=== PATIENT | female | born 1990 | race African-American/Black ===

== ENCOUNTER 2018-10-01 08:04 | Emergency (ER) | payer OTHER, SELFPAY ==
--- NOTE | 2018-10-01 08:13 | ED.PREGNANCY ---
HPI - General Chief complaint: Vaginal Bleeding Stated complaint: ,bleeding Time Seen by Provider: 10/01/18 08:05 Source: patient and family Mode of arrival: ambulatory Limitations: no limitations History of Present Illness HPI Narrative: 28-year-old female nonsmoker at 11 weeks presents with a small amount of pinkish spotting this morning in the absence of any pain, fever or chills. She has not dizzy nor weak or lightheaded and denies urinary complaints such as dysuria, frequency or urgency. She had a miscarriage at 11 weeks with a prior and her living child was delivered by emergency at 27 weeks. Patient has been referred to maternal medicine at [facility] in [place] Complaint: vaginal bleeding Onset (ago): hour(s) Location: pelvis Associated symptoms: vaginal bleeding Vaginal discharge: none Vaginal bleeding: light Patient : Yes OB History - Current : no complications OB History - Previous Pregnancies: miscarriage care: followed by OB and previous ultrasound confirms IUP Review of Systems Constitutional Denies chills, Denies fever(s), Denies lethargy and Denies weakness Eyes Denies change in vision, Denies eye discharge, Denies irritation and Denies loss of vision ENT Ears, Nose, Mouth, and Throat: Denies change in voice, Denies neck pain and Denies sore throat Cardiovascular Denies chest pain, Denies irregular heart rhythm, Denies lightheadedness, Denies palpitations, Denies dyspnea, Denies dyspnea on exertion and Denies orthopnea Respiratory Denies cough, Denies dyspnea, Denies dyspnea on exertion and Denies wheezing Gastrointestinal Gastrointestinal: Denies abdominal pain, Denies change in bowel habits, Denies diarrhea, Denies nausea and Denies vomiting Genitourinary Denies hematuria, Denies flank pain, Denies urinary incontinence and Denies urinary urgency Musculoskeletal Denies neck pain Integumentary/Breasts Denies pruritus, Denies erythema, Denies rash and Denies wounds Neurologic Denies confusion, Denies loss of vision and Denies weakness Psychiatric Denies anxiety, Denies confusion, Denies depression, Denies homicidal ideation and Denies suicidal ideation Endocrine Denies palpitations Hematologic/Lymphatic Denies easy bruising Allergic/Immunologic Denies wheezing PMFSH - Past Medical History Patient : Yes Exam Narrative Exam Narrative: GENERAL: Pleasant 28-year-old female appears stated age, in no obvious or significant distress HEAD: Atraumatic. Normocephalic. No temporal or scalp tenderness. EYES: Pupils equal round and reactive. Extraocular motions intact. No scleral icterus. No injection or drainage. ENT: Nose without bleeding, purulent drainage or septal hematoma. Throat without erythema, tonsillar hypertrophy or exudate. Uvula midline. Airway patent. NECK: Trachea midline. No JVD or lymphadenopathy. Supple, nontender, no meningeal signs. CARDIOVASCULAR: Regular rate and rhythm without murmurs, gallops, or rubs. RESPIRATORY: Clear to auscultation. Breath sounds equal bilaterally. No wheezes, rales, or rhonchi. GASTROINTESTINAL: Abdomen soft, non-tender, nondistended. No hepato-splenomegaly, or palpable masses. No guarding. EXTREMITIES: No clubbing, cyanosis, or edema. No joint tenderness, effusion, or edema noted. BACK: Nontender without deformity or crepitance. No flank tenderness. NEURO: AOx3. SKIN: No rash or erythema. Initial Vital Signs Initial Vital Signs: Vital Signs Temperature 97.4 F L 10/01/18 08:21 Pulse Rate 68 10/01/18 08:21 Respiratory Rate 12 10/01/18 08:21 Blood Pressure 113/68 10/01/18 08:21 Pulse Oximetry 100 10/01/18 08:21 Course Orders Ordered: ED Orders 10/01/18 08:39 US OB <= 14 weeks fetus Stat 10/01/18 08:48 Basic Metabolic Panel Stat Complete Blood Count AUTO DIFF Stat HCG Quantitative Stat Vital Signs - 8 hr 10/01/18 08:21 Temperature 97.4 F L Pulse Rate 68 Respiratory Rate 12 Blood Pressure 113/68 Pulse Oximetry 100 MDM - OB/Uterine Contractions Lab Data Result diagrams: 10/01/18 08:48 10/01/18 08:48 Lab Results 10/01/18 10/01/18 Range/Units 08:48 08:48 WBC 4.9 (4.5-11.0) X10^3/uL RBC 4.47 (4.0-5.2) X10^6/uL Hgb 10.8 L (12.0-16.0) g/dL Hct 33.1 L (36-46) % MCV 74.1 L (80-100) fL MCH 24.1 L (26-34) PG MCHC 32.5 (30-36) % RDW 18.6 H (11.6-14.8) % Plt Count 257 (150-400) X10^3/uL Neut % (Auto) 69.5 (50-75) % Lymph % (Auto) 18.9 L (25-40) % [place] % (Auto) 9.5 (3-14) % Eos % (Auto) 1.0 L (2-4) % Baso % (Auto) 1.1 (0-2) % Neut # (Auto) 3400 (1958-9312) /uL Lymph # (Auto) 900 L (4003-6744) /uL [place] # (Auto) 500 (0-900) /uL Eos # (Auto) 100 (0-450) /uL Baso # (Auto) 100 (0-100) /uL Sodium 136 L (137-145) mmol/L Potassium 4.0 (3.4-5.1) mmol/L Chloride 103 (98-107) mmol/L Carbon Dioxide 26 (22-32) mmol/L BUN 11 (7-17) mg/dL Creatinine 0.70 (0.52-1.04) mg/dL Estimated GFR > 60.0 (>60) mL/min BUN/Creatinine Ratio 15.7 (6-22) Glucose 79 (70-100) mg/dL Calcium 9.0 (8.4-10.2) mg/dL HCG, Quant 74452 mIU/mL Imaging Data US - abdomen: Radiologist's impression: Chart Viewer Diagnostics DATE TYPE STATUS AUTHOR Hx 10/01/18 08:39 Salomon Cheung Dale Hartmann 28, F0 1990 REG ER, ED.LOC - Main ED: R06 89.811kg Vaginal Bleeding Search Chart No Data to Display No Data to Display No Data to Display No Data to Display Today 08:21 Dale Hartmann 28 F [address] [address] Ultrasound Report Signed Patient: Dale HartmannMR#: [id number] : 1990Acct:[id number] Age/Sex: 28 / FDate of Service: 10/01/18 Loc: ED Accession Number: [id number] Procedure: US OB <= 14 weeks fetus Ordering Provider: Luis Antonio Cardoza D.O. PROCEDURE: US OB <= 14 WEEKS FETUS INDICATIONS: SPOTTING OUTSIDE/PRIOR DATING DATA: Last menstrual period (LMP): 07/08/18. LMP-based estimated date of delivery (NAV): 04/14/19. First dating scan (date and location): This study, 10/01/18. Estimated date of delivery (NAV) from first dating scan: 04/20/19. TECHNIQUE: Real-time scanning was performed of the fetus and maternal pelvic organs, with image documentation. COMPARISON: None. FINDINGS: Embryo: Single living intrauterine gestation with heart rate 150 beats per minute and crown-rump length 4.4 cm which correlates with the gestational age estimate of 11 weeks 2 days, plus or -5 days. Measurement variability in dating: +/- 4 weeks by LMP, +/- 7 days by mean sac diameter (use before 6 weeks gestation if crown-rump length not able to be measured), +/- 5 days by crown-rump length (up to 8 weeks 6 days gestation), +/- 7 days by crown-rump length (up to 13 weeks 6 days gestation). Maternal organs: Ovaries not well seen bilaterally due to overlying bowel gas. Limited images through the kidneys demonstrate no hydronephrosis. IMPRESSION: Single living intrauterine gestation, with no evidence of subchorionic hemorrhage. Presence or absence of previa is difficult to establish at this early phase of gestation but there is a suspicion of a marginal previa by current appearance. Followup assessment for anatomic survey and accurate assessment for presence or absence of low lying placenta/marginal previa is recommended at approximately 20 weeks gestation. The delivery date is projected to be centered on 04/20/19, plus or -5 days. Dictated by: Salomon Cheung M.D. on 10/01/2018 at 9:28 Approved by: Salomon Cheung M.D. on 10/01/2018 at 9:36 Discharge Plan Departure Patient Disposition: Home Clinical Impression: Vaginal bleeding Discharge Date/Time: 10/01/18 10:04 Interventions: ED Discharge Assessment Last Done: 10/01/18 10:03 Instructions: DI for Vaginal Bleeding During Activity Restrictions/Additional Instructions: *You have been diagnosed with [acute vaginal spotting, ultrasound said there are is a small possibility of a minor placenta previa but is unclear and they recommend follow-up with Ob] *What to do: * continue to take medications as directed *Follow up with your OB provider in 2-3 days, call for an appointment. Let them know you were seen in the Emergency Department and that we ask that you be seen in follow up *Return to ER if you should have any new, worsening or concerning symptoms, such as [increasing pain, bleeding through 1 pad per hour, dizziness, lightheadedness or other bothersome symptoms]
[2018-10-01 08:21] VITALS: BP 113/68; PULSE 68; RESP 12; TEMP 36.3; O2SAT 100
--- NOTE | 2018-10-01 08:39 | DI.US.S_ITS ---
PROCEDURE: US OB <= 14 WEEKS FETUS INDICATIONS: SPOTTING OUTSIDE/PRIOR DATING DATA: Last menstrual period (LMP): 07/08/18. LMP-based estimated date of delivery (NAV): 04/14/19. First dating scan (date and location): This study, 10/01/18. Estimated date of delivery (NAV) from first dating scan: 04/20/19. TECHNIQUE: Real-time scanning was performed of the fetus and maternal pelvic organs, with image documentation. COMPARISON: None. FINDINGS: Embryo: Single living intrauterine gestation with heart rate 150 beats per minute and crown-rump length 4.4 cm which correlates with the gestational age estimate of 11 weeks 2 days, plus or -5 days. Measurement variability in dating: +/- 4 weeks by LMP, +/- 7 days by mean sac diameter (use before 6 weeks gestation if crown-rump length not able to be measured), +/- 5 days by crown-rump length (up to 8 weeks 6 days gestation), +/- 7 days by crown-rump length (up to 13 weeks 6 days gestation). Maternal organs: Ovaries not well seen bilaterally due to overlying bowel gas. Limited images through the kidneys demonstrate no hydronephrosis. IMPRESSION: Single living intrauterine gestation, with no evidence of subchorionic hemorrhage. Presence or absence of previa is difficult to establish at this early phase of gestation but there is a suspicion of a marginal previa by current appearance. Followup assessment for anatomic survey and accurate assessment for presence or absence of low lying placenta/marginal previa is recommended at approximately 20 weeks gestation. The delivery date is projected to be centered on 04/20/19, plus or -5 days. Dictated by: Salomon Cheung M.D. on 10/01/2018 at 9:28 Approved by: Salomon Cheung M.D. on 10/01/2018 at 9:36
[2018-10-01 08:58] LABS: Add Manual Diff / Slide Review NO; Basophils Absolute Auto 100 /uL (0-100); Basophils Percent Auto 1.1 % (0-2); Eosinophils Absolute Auto 100 /uL (0-450); Hematocrit 33.1 % (36-46); Hemoglobin 10.8 g/dL (12.0-16.0); Lymphocytes Absolute Auto 900 /uL (1100-4500); Lymphocytes Percent Auto 18.9 % (25-40); Mean Corpuscular HGB Conc 32.5 % (30-36); Mean Corpuscular Hemoglobin 24.1 PG (26-34); Mean Corpuscular Volume 74.1 fL (80-100); Monocytes Absolute Auto 500 /uL (0-900); Monocytes Percent Auto 9.5 % (3-14); Neutrophils Absolute Auto 3400 /uL (1500-7000); Neutrophils Percent Auto 69.5 % (50-75); Platelet Count 257 X10^3/uL (150-400); Red Blood Cell Count 4.47 X10^6/uL (4.0-5.2); Red Cell Distribution Width 18.6 % (11.6-14.8); White Blood Cell Count 4.9 X10^3/uL (4.5-11.0)
[2018-10-01 09:14] LABS: BUN Creatinine Ratio 15.7 (6-22); Blood Urea Nitrogen 11 mg/dL (7-17); Carbon Dioxide 26 mmol/L (22-32); Chloride 103 mmol/L (98-107); Estimated Glomerular Filt Rate > 60.0 mL/min (>60); Glucose 79 mg/dL (70-100); HEMOLYSIS < 15 (0-50); Sodium 136 mmol/L (137-145)
--- NOTE | 2018-10-01 09:52 | ED_ITS ---
HPI - General Chief complaint: Vaginal Bleeding Stated complaint: ,bleeding Time Seen by Provider: 10/01/18 08:05 Source: patient and family Mode of arrival: ambulatory Limitations: no limitations History of Present Illness HPI Narrative: 28-year-old female nonsmoker at 11 weeks presents with a small amount of pinkish spotting this morning in the absence of any pain, fever or chills. She has not dizzy nor weak or lightheaded and denies urinary complaints such as dysuria, frequency or urgency. She had a miscarriage at 11 weeks with a prior and her living child was delivered by emergency C- section at 27 weeks. Patient has been referred to maternal medicine at [facility] in [place] Complaint: vaginal bleeding Onset (ago): hour(s) Location: pelvis Associated symptoms: vaginal bleeding Vaginal discharge: none Vaginal bleeding: light Patient : Yes OB History - Current : no complications OB History - Previous Pregnancies: miscarriage care: followed by OB and previous ultrasound confirms IUP Review of Systems Constitutional Denies chills, Denies fever(s), Denies lethargy and Denies weakness Eyes Denies change in vision, Denies eye discharge, Denies irritation and Denies loss of vision ENT Ears, Nose, Mouth, and Throat: Denies change in voice, Denies neck pain and Denies sore throat Cardiovascular Denies chest pain, Denies irregular heart rhythm, Denies lightheadedness, Denies palpitations, Denies dyspnea, Denies dyspnea on exertion and Denies orthopnea Respiratory Denies cough, Denies dyspnea, Denies dyspnea on exertion and Denies wheezing Gastrointestinal Gastrointestinal: Denies abdominal pain, Denies change in bowel habits, Denies diarrhea, Denies nausea and Denies vomiting Genitourinary Denies hematuria, Denies flank pain, Denies urinary incontinence and Denies urinary urgency Musculoskeletal Denies neck pain Integumentary/Breasts Denies pruritus, Denies erythema, Denies rash and Denies wounds Neurologic Denies confusion, Denies loss of vision and Denies weakness Psychiatric Denies anxiety, Denies confusion, Denies depression, Denies homicidal ideation and Denies suicidal ideation Endocrine Denies palpitations Hematologic/Lymphatic Denies easy bruising Allergic/Immunologic Denies wheezing PMFSH - Past Medical History Patient : Yes Exam Narrative Exam Narrative: GENERAL: Pleasant 28-year-old female appears stated age, in no obvious or significant distress HEAD: Atraumatic. Normocephalic. No temporal or scalp tenderness. EYES: Pupils equal round and reactive. Extraocular motions intact. No scleral icterus. No injection or drainage. ENT: Nose without bleeding, purulent drainage or septal hematoma. Throat without erythema, tonsillar hypertrophy or exudate. Uvula midline. Airway patent. NECK: Trachea midline. No JVD or lymphadenopathy. Supple, nontender, no meningeal signs. CARDIOVASCULAR: Regular rate and rhythm without murmurs, gallops, or rubs. RESPIRATORY: Clear to auscultation. Breath sounds equal bilaterally. No wheezes, rales, or rhonchi. GASTROINTESTINAL: Abdomen soft, non-tender, nondistended. No hepato- splenomegaly, or palpable masses. No guarding. EXTREMITIES: No clubbing, cyanosis, or edema. No joint tenderness, effusion, or edema noted. BACK: Nontender without deformity or crepitance. No flank tenderness. NEURO: AOx3. SKIN: No rash or erythema. Initial Vital Signs Initial Vital Signs: Vital Signs Temperature 97.4 F L 10/01/18 08:21 Pulse Rate 68 10/01/18 08:21 Respiratory Rate 12 10/01/18 08:21 Blood Pressure 113/68 10/01/18 08:21 Pulse Oximetry 100 10/01/18 08:21 Course Orders Ordered: ED Orders 10/01/18 08:39 US OB <= 14 weeks fetus Stat 10/01/18 08:48 Basic Metabolic Panel Stat Complete Blood Count AUTO DIFF Stat HCG Quantitative Stat Vital Signs - 8 hr 10/01/18 08:21 Temperature 97.4 F L Pulse Rate 68 Respiratory Rate 12 Blood Pressure 113/68 Pulse Oximetry 100 MDM - OB/Uterine Contractions Lab Data Result diagrams: 10/01/18 08:48 10/01/18 08:48 Lab Results 10/01/18 10/01/18 Range/Units 08:48 08:48 WBC 4.9 (4.5-11.0) X10^3/uL RBC 4.47 (4.0-5.2) X10^6/uL Hgb 10.8 L (12.0-16.0) g/dL Hct 33.1 L (36-46) % MCV 74.1 L (80-100) fL MCH 24.1 L (26-34) PG MCHC 32.5 (30-36) % RDW 18.6 H (11.6-14.8) % Plt Count 257 (150-400) X10^3/uL Neut % (Auto) 69.5 (50-75) % Lymph % (Auto) 18.9 L (25-40) % [place] % (Auto) 9.5 (3-14) % Eos % (Auto) 1.0 L (2-4) % Baso % (Auto) 1.1 (0-2) % Neut # (Auto) 3400 (0883-8914) /uL Lymph # (Auto) 900 L (7961-8987) /uL [place] # (Auto) 500 (0-900) /uL Eos # (Auto) 100 (0-450) /uL Baso # (Auto) 100 (0-100) /uL Sodium 136 L (137-145) mmol/L Potassium 4.0 (3.4-5.1) mmol/L Chloride 103 (98-107) mmol/L Carbon Dioxide 26 (22-32) mmol/L BUN 11 (7-17) mg/dL Creatinine 0.70 (0.52-1.04) mg/dL Estimated GFR > 60.0 (>60) mL/min BUN/Creatinine Ratio 15.7 (6-22) Glucose 79 (70-100) mg/dL Calcium 9.0 (8.4-10.2) mg/dL HCG, Quant 26824 mIU/mL Imaging Data US - abdomen: Radiologist's impression: Chart Viewer Diagnostics DATE TYPE STATUS AUTHOR Hx 10/01/18 08:39 Salomon Cheung Dale Hartmann 28, F0 1990 REG ER, ED.LOC - Main ED: R06 89.811kg Vaginal Bleeding Search Chart No Data to Display No Data to Display No Data to Display No Data to Display Today 08:21 Dale Hartmann 28 F [address] [address] Ultrasound Report Signed Patient: Dale HartmannMR#: [id number] : 1990Acct:[id number] Age/Sex: 28 / FDate of Service: 10/01/18 Loc: ED Accession Number: [id number] Procedure: US OB <= 14 weeks fetus Ordering Provider: Luis Antonio Cardoza D.O. PROCEDURE: US OB <= 14 WEEKS FETUS INDICATIONS: SPOTTING OUTSIDE/PRIOR DATING DATA: Last menstrual period (LMP): 07/08/18. LMP-based estimated date of delivery (NAV): 04/14/19. First dating scan (date and location): This study, 10/01/18. Estimated date of delivery (NAV) from first dating scan: 04/20/19. TECHNIQUE: Real-time scanning was performed of the fetus and maternal pelvic organs, with image documentation. COMPARISON: None. FINDINGS: Embryo: Single living intrauterine gestation with heart rate 150 beats per minute and crown-rump length 4.4 cm which correlates with the gestational age estimate of 11 weeks 2 days, plus or -5 days. Measurement variability in dating: +/- 4 weeks by LMP, +/- 7 days by mean sac diameter (use before 6 weeks gestation if crown-rump length not able to be measured), +/- 5 days by crown-rump length (up to 8 weeks 6 days gestation), +/- 7 days by crown-rump length (up to 13 weeks 6 days gestation). Maternal organs: Ovaries not well seen bilaterally due to overlying bowel gas. Limited images through the kidneys demonstrate no hydronephrosis. IMPRESSION: Single living intrauterine gestation, with no evidence of subchorionic hemorrhage. Presence or absence of previa is difficult to establish at this early phase of gestation but there is a suspicion of a marginal previa by current ap pearance. Followup assessment for anatomic survey and accurate assessment for presence or absence of low lying placenta/marginal previa is recommended at approximately 20 weeks gestation. The delivery date is projected to be centered on 04/20/19, plus or -5 days. Dictated by: Salomon Cheung M.D. on 10/01/2018 at 9:28 Approved by: Salomon Cheung M.D. on 10/01/2018 at 9:36 Discharge Plan Departure Patient Disposition: Home Clinical Impression: Vaginal bleeding Discharge Date/Time: 10/01/18 10:04 Interventions: ED Discharge Assessment Last Done: 10/01/18 10:03 Instructions: DI for Vaginal Bleeding During Activity Restrictions/Additional Instructions: *You have been diagnosed with [acute vaginal spotting, ultrasound said there are is a small possibility of a minor placenta previa but is unclear and they recommend follow-up with Ob] *What to do: * continue to take medications as directed *Follow up with your OB provider in 2-3 days, call for an appointment. Let them know you were seen in the Emergency Department and that we ask that you be seen in follow up *Return to ER if you should have any new, worsening or concerning symptoms, such as [increasing pain, bleeding through 1 pad per hour, dizziness, lightheadedness or other bothersome symptoms]
[2018-10-01 09:55] LABS: HCG Quantitative /Beta subunit 50338 mIU/mL
[2018-10-01 10:03] VITALS: BP 118/78; PULSE 62; RESP 12; O2SAT 99
== END 2018-10-01 10:04 | disposition home or self-care (01) ==
PROVIDERS: Emergency Provider Emergency Medicine
DX: O20.9 Hemorrhage in early pregnancy, unspecified (principal); Z3A.11 11 weeks gestation of pregnancy
CPT/HCPCS: 36415; 76801; 76817; 80048; 84702; 85025; 99283; 99284

== ENCOUNTER 2019-01-04 14:32 | Observation (INO) | payer OTHER, SELFPAY ==
--- NOTE | 2019-01-04 | DI.US.S_ITS ---
PROCEDURE: US OB >= 14 WEEKS FETUS INDICATIONS: History of cerclage OUTSIDE/PRIOR DATING DATA: Last menstrual period (LMP): 07/08/18. LMP-based estimated date of delivery (NAV): 04/14/19. First dating scan (date and location): 10/01/18. Estimated date of delivery (NAV) from first dating scan: 04/20/19. TECHNIQUE: Real-time scanning was performed of the fetus, with image documentation and biometric measurements. COMPARISON: None. FINDINGS: General: A single living intrauterine gestation is present. Presentation: Cephalic Placenta: Placental position is posterior without evidence of previa Amniotic fluid index: 16.5 cm, normal range is 5-24 cm. heart rate: 144 beats per minute. Maternal cervical canal: The cervix measures at least 3 cm in length and may measure up to 3.7 cm in length. The lower aspect of the cervix is closed. There is slight asymmetric V-shaped funneling along the internal cervical os, measuring up to approximately 1.2 cm. biometrics: Biparietal diameter: 5.9 cm, 24 weeks 2 days Head circumference: 22.4 cm, 24 weeks 3 days Abdominal circumference: 20.6 cm, 25 weeks 1 day Femur length: 4.2 cm, 23 weeks 5 days Estimated gestational age from initial scan: 24 weeks 6 days Composite gestational age from present scan: 24 weeks 3 days Estimated weight and percentile: 708 g (22nd percentile) Other: Please note that a formal anatomic survey was not performed. No gross anatomic abnormality is evident on the provided images. IMPRESSION: 1. Single live intrauterine at 24 weeks 3 days is concordant with the clinical dates and has demonstrated appropriate interval growth. 2. The cervix is closed and normal in length. However, there is questionable V-shaped funneling along the internal cervical os. Clinical followup and followup imaging as clinically appropriate is recommended. 3. Estimated weight is in the 22nd percentile. Dictated by: Rahul Ramos M.D. on 01/04/2019 at 16:42 Approved by: Rahul Ramos M.D. on 01/04/2019 at 16:47
[2019-01-04] MEDS: LACTATED RINGERS 1,000 ML 150 ML IV (15:45)
--- NOTE | 2019-01-04 16:53 | PM.OBHP.1 ---
OB HPI Date/Time Date of admission: 01/04/19 Date Patient Seen: 01/04/19 Time Patient Seen: 16:53 History of Present Condition Chief complaint: Obs : 2 Para: 1 Estimated Date of Delivery: 04/19/19 Estimated Gestational Age (weeks): 25 2da Narrative: Dale Hartmann is a 28 year old female with a history of premature labor at 27 weeks in her prior . Baby was breech and she was delivered by classical section. Most recently she has been seen and followed at the [facility] at [facility] and a 22 weeks had a shirodkar placed. I have spoken to the perinatologist involved. He says it is a very difficult vaginal exam. 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) Medical complications: none Preadmission Labs -: Antibody screen: unknown, Cystic fibrosis screen: unknown, GBS status: unknown, HBsAG: unknown, HIV: unknown, HSV 1: unknown, HSV 2: unknown and RPR/VDLR: unknown Evaluation Evaluation Baseline heart rate: 150 Variability: Average (6-10) monitor accelerations: Absent monitor decelerations: Absent Cervical dilation (cm): 0 Cervical effacement (%): 0 PFSH Social History Smoking Status: Never smoker Review of Systems Review of Systems ROS Unobtainable: All systems reviewed & are unremarkable except as noted in HPI and below Exam Const General: cooperative and healthy appearing [facility] Head: normal to inspection Ears: hearing grossly normal bilaterally Nose: external nose normal Face and sinus: normal facial exam Mouth: oral mucosae normal, lip normal, tongue normal and moist mucous membranes Teeth and gingiva: dentition normal Throat: posterior oropharynx normal Eyes General: appearance normal, both eyes and all related structures Neck Neck: normal visual inspection and full ROM Chest Chest: normal inspection of the chest and normal palpation of entire chest wall Breast inspection: normal inspection of the breasts and normal inspection of the axillae Breast Palpation: normal palpation of the breasts and normal palpation of the axillae Resp Effort & Inspection: normal respiratory effort Auscultation: clear to auscultation bilaterally Cardio Palpation: normal PMI Rate: regular rate Rhythm: regular rhythm Heart Sounds: S1 normal and S2 normal GI Inspection: normal to inspection Palpation: soft and no hepatosplenomegaly Percussion: normal to percussion Auscultation: normal bowel sounds OB/External & Speculum: external exam normal Manual OB Exam: dilated (Not dilated and ultrasound shows cervix 3.3 cm), effaced and station '+1 Presentation: vertex Back/Spine/Pelvis Thoracic/Lumbar Spine: thoracic and lumbar spine normal to inspection Skin General: no rashes or lesions noted Neuro General: alert, oriented x3, tone normal and moves all extremities Cognition: normal cognition Speech: speech normal Gait: normal gait Motor: muscle tone normal throughout Sensory Exam: no sensory deficits noted Extrem General: normal to inspection and normal exam except as noted Psych Appearance: grossly normal and well kempt Mental Status: mental status grossly normal Speech and Movement: speech and movement normal Objective ECG Impression: 25 week intrauterine History of pressure Prior cerclage two weeks ago Ultrasound shows cervix at three point three cm Had almost on perineum In consultation with perinatology at [facility] [place] plan is to transfer there S she had her cerclage there for continuous evaluate Assessment and Plan Assessment and Plan Assessment and Plan narrative: 25 week intrauterine Estimated weight seven and 8 g 22nd percentile History of emergency cerclage at 22 weeks at [facility] Now with pressure and examination showing had deep in the pelvis Ultrasound shows cervix to be 3.3 cm 4 g Mag sulfate IV 12 mg betamethasone IM Transferred to [facility] [place] for continues evaluation
[2019-01-04 17:12] LABS: Add Manual Diff / Slide Review NO; Basophils Absolute Auto 0 /uL (0-100); Basophils Percent Auto 0.4 % (0-2); Eosinophils Absolute Auto 0 /uL (0-450); Eosinophils Percent Auto 0.2 % (2-4); Hematocrit 29.2 % (36-46); Hemoglobin 9.4 g/dL (12.0-16.0); Lymphocytes Absolute Auto 1300 /uL (1100-4500); Lymphocytes Percent Auto 11.8 % (25-40); Mean Corpuscular HGB Conc 32.1 % (30-36); Mean Corpuscular Volume 71.7 fL (80-100); Monocytes Absolute Auto 500 /uL (0-900); Monocytes Percent Auto 5.1 % (3-14); Neutrophils Absolute Auto 8800 /uL (1500-7000); Neutrophils Percent Auto 82.5 % (50-75); Platelet Count 323 X10^3/uL (150-400); Red Blood Cell Count 4.07 X10^6/uL (4.0-5.2); Red Cell Distribution Width 15.9 % (11.6-14.8); White Blood Cell Count 10.7 X10^3/uL (4.5-11.0)
[2019-01-04] MEDS: MAGNESIUM SULFATE 4 GM/100 ML PIGGYBACK IV (17:15)
[2019-01-04 17:19] LABS: Carbon Dioxide 20 mmol/L (22-32); Chloride 102 mmol/L (98-107); HEMOLYSIS < 15 (0-50); Magnesium 1.9 mg/dL (1.6-2.3); Potassium 3.8 mmol/L (3.4-5.1); Sodium 135 mmol/L (137-145)
[2019-01-04] MEDS: BETAMETHASONE 30 MG/5 ML MDV 12 MG IM (17:31)
== END 2019-01-04 17:55 | disposition home or self-care (01) ==
DX: O26.892 Other specified pregnancy related conditions, second trimester (principal); Z3A.25 25 weeks gestation of pregnancy; N89.8 Other specified noninflammatory disorders of vagina
CPT/HCPCS: 59025; 59050; 76815; 80051; 83735; 85025; 96360; 96372; G0378; G0379; J0702; J3475